=== PATIENT | male | born 1970 | race Caucasian/White ===

== ENCOUNTER 2024-06-17 09:21 | Outpatient (CLI) | payer OTHER, SELFPAY ==
--- NOTE | ~2024-06-17 | MMUS_ITS ---
EXAMINATION: MM diagnostic tamia LT w juancarlos, US breast BI complete HISTORY: Left breast lump TECHNIQUE: Additional 3-D tomosynthesis images of the breasts were performed and synthetic 2-D images were generated. CAD analysis was submitted and interpreted. High resolution bilateral complete breas t ultrasound was performed. COMPARISON: None BREAST PARENCHYMAL COMPOSITION: Not dense: There are scattered areas of fibroglandular density. FINDINGS: MAMMOGRAPHIC FINDINGS: There is a subareolar mass of the left breast measuring approximately 2.8 cm by mammography. This cor responds to the palpable finding. There are no discrete masses, calcifications or suspicious architec tural distortion in the right breast. There is bilateral gynecomastia. ULTRASOUND: Complete US of all 4 quadrants of the breast/s and retroareolar region was reviewed. Right breast: Normal heterogeneous echotexture without focal solid or cystic mass. Left breast: In the upper outer quadrant of the left breast there is a hypoechoic mass with slightly irregular margins, parallel orientation and mixed posterior attenuation. This measures measures 3 x 1 .2 x 2.9 cm corresponding to the mammographic finding. IMPRESSION: 1. Complex hypoechoic 3 cm left breast mass corresponding to the palpable and mammographic finding. 2. Ultrasound-guided left breast biopsy recommended. BI-RADS category 4, suspicious findings. Reviewed, dictated and finalized at location B. IGURATOR IMPRESSION: 1. Complex hypoechoic 3 cm left breast mass corresponding to the palpable and m ammographic finding. 2. Ultrasound-guided left breast biopsy recommended. BI-RADS category 4, suspicious findings.
--- OUTSIDE RECORDS SUMMARY | 2024-06-17 09:30 | XMS_ITS | Referral Summary ---
Author Organization [facility] Address [facility] [place] [address] Care Team Providers Care Sander Machine Name Role Phone Yonatan Andrade MD Primary Care Provider [phone] Huy Mcpherson MD Unavailable [phone] Boy Bernard MD Unavailable [phone] Christo Enrique MD Unavailable [phone] Allergies No known active allergies Medications buPROPion XL (WELLBUTRIN XL) 150 mg 24 hr tabletIndications: Anxiety with Depression Take 150 mg by mouth every morning 11/21/19 20 Active quinapriL (ACCUPRIL) 10 mg tabletIndications: hypertension Take 10 mg by mouth every morning 09/26/19 20 Active rosuvastatin (CRESTOR) 10 mg tabletIndications: hyperlipidemia 10 mg every morning 09/23/19 20 Active sildenafiL (VIAGRA) 100 mg tablet TAKE ONE TABLET DAILY NEEDED 09/24/19 20 Active ondansetron ODT (ZOFRAN-ODT) 4 mg disintegrating tablet Take 1 tablet (4 mg total) by mouth every 8 (eight) hours as needed for nausea or vomiting 20 tablet 11/25/19 21 Active Additional Information Patient not taking.Reported on 12/28/2021 docusate sodium (COLACE) 100 mg capsuleIndications :constipation Take 1 capsule (100 mg total) by mouth 2 (two) times a day 30 capsule 11/25/19 21 Active Additional Information Patient not taking.Reported on 12/28/2021 oxyCODONE (ROXICODONE) 5 mg immediate release tabletIndications: Pain Take 1 tablet (5 mg total) by mouth every 4 (four) hours as needed for pain 10 tablet 11/27/19 21 Active Additional Information Patient not taking.Reported on 12/28/2021 acetaminophen (TYLENOL) 500 mg tablet TAKE 2 TABLETS BY MOUTH EVERY 8 HOURS 11/25/19 21 Active polyethylene glycol (GoLYTELY) 236-22.74-6.74 -5.86 gram solutionIndication s:Adenomatous polyp of ascending colon Drink first half of prep at 6 pm the night before procedure and then second half 4 hours prior to leaving home. 4000 mL 11/29/19 22 Active Additional Information Patient not taking.Reported on 12/28/2021 Vraylar 3 mg capsule capsule Take 3 mg by mouth every morning 12/28/19 22 Active lamoTRIgine (LaMICtal) 150 mg tabletIndications: Spells of decreased attentiveness,Bipo lar affective disorder in remission (CMS/HCC) (HCC) Take 2 tablets (300 mg total) by mouth nightly 180 tablet 1 09/21/19 23 Active OXcarbazepine (TRILEPTAL) 300 mg tabletIndications: Spells of decreased attentiveness,Bipo lar affective disorder in remission (CMS/HCC) (HCC) Take 1 tablet (300 mg total) by mouth 2 (two) times a day 180 tablet 1 02/08/20 23 Active Active Problems Problem Noted Date Diagnosed Date History of colon polyps 12/23/2020 Adenomatous polyp of ascending colon 10/19/2020 Spells of decreased attentiveness 06/01/2020 Assessment & Plan (01/02/2022 11:56 AM CDT): 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 2-3 times a week 12/22/2021 Q2: How many drinks containi ng alcohol do you have on a typical day when you are drinking? 3 or 4 12/22/2021 Q3: How often do you have si x or more drinks on one occasion? 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 Gender Identity Not on file Sexual Orientation Not on file Last Filed Vital Signs Vital Sign Reading Time Taken Comments Blood Pressure 114/76 12/28/2021 1:37 PM CDT Pulse 78 12/28/2021 1:37 PM CDT Temperature 36.7 C (98 F) 12/28/2021 1:37 PM CDT Respiratory Rate 16 12/22/2021 10:30 AM CDT Oxygen Saturation 98% 12/28/2021 1:37 PM CDT Inhaled Oxygen Concentration - - Weight 103.1 kg (227 lb 5 oz) 12/28/2021 1:37 PM CDT Height 188 cm (6' 2 ) 12/28/2021 1:37 PM CDT Body Mass Index 29.19 12/28/2021 1:37 PM CDT Plan of Treatment Not on file Procedures Procedure Name Priority Date/Time Associated Diagnosis Comments COLONOSCOPY 12/22/2021 9:25 AM CDT from Last 3 Months or Most Recently Relevant to Health Maintenance Results * COLONOSCOPY (12/22/2021 9:25 AM CDT) Anatomical Region Laterality Modality Other Narrative Procedure Note Christo Enrique MD - 12/22/2021 9:25 AM CDT [facility] Patient Name: Niraj Patton Procedure Date: 12/22/2021 9:25 AM Date of : 1970 Admit Type: Outpatient Age: 51 Gender: Male Attending MD: Christo Enrique M.D. Room: [facility] ENDOSCOPY ROOM 02 Note Status: Finalized Procedure: Colonoscopy Indications: High risk colon cancer surveillance: Personalhistory of colonic polyps, Last colonoscopy: 2020 Referring MD: Yonatan Andrade MD Providers: Christo Enrique M.D. Medicines: Propofol per Anesthesia Complications: No immediate complications. Estimated Blood Loss: Estimated blood loss: none. Procedure: Pre-Anesthesia Assessment: - After reviewing the risks and benefits, thepatient was deemed in satisfactory condition to undergo the procedure in an ambulatory setting. - Immediately prior to administration ofmedications, the patient was re-assessed for adequacy to receive sedatives. The benefits, risks and alternatives of theprocedure and sedation were discussed and informed consentwas obtained. All questions were answered. Please referto the signed informed consent document in the medical record. The scope was passed under direct vision.The [id number] Endoscsope was introduced through the anus and advanced to the the ileocolonic anastomosis. The colonoscopy was performed without difficulty. The patient tolerated the procedurewell. The quality of the bowel preparation was good. The bowel preparation used was GoLYTELY via split dose instruction. Findings: The entire examined colon appeared normal. Impression: - The entire examined colon is normal. - No specimens collected. - The entire examined colon is normal. Recommendation: - Repeat colonoscopy in 3 years for surveillance. Electronically signed by Dr.Matthew Klaus M.D. Christo Enrique M.D. 12/22/2021 10:15:48 AM . Number of Addenda: 0 Note Initiated On: 12/22/2021 9:25 AM Recognized by the [employer] for promoting quality in endoscopy Christo Enrique MD ENDOSCOPY PROCEDURES Final R esult from Last 3 Months or Most Recently Relevant to Health Maintenance Insurance [employer] Advance Directives For more information, please contact: [phone] * Full Code (Latest Code Status on File) Date Activated Date Inactivated Comments 12/22/2021 8:51 AM 12/22/2021 2:41 PM * Full Code Date Activated Date Inactivated Comments 11/22/2020 2:57 PM 11/24/2020 2:17 PM Care Teams Sander Machine Relationship Specialty Start Date End Date Yonatan Andrade MD [address] [place] [address] PCP - General Internal Medicine 06/03/19 Huy Mcpherson MD [address] [place] [address] Referring Physician Gastroenterology 10/13/20 Boy Bernard MD [address] [place] [address] Field Service Specialist Gastroenterology 10/19/20 Christo Enrique MD [phone] [place] [address] Surgeon Colon and Rectal Surgery 10/19/20
--- OUTSIDE RECORDS SUMMARY | 2024-06-17 09:30 | XMS_ITS | Encounter Summary ---
Author Organization [facility] Address [facility] [place] [address] Care Team Providers Care Farmer Cash Grain Name Role Phone Yonatan Andrade MD Primary Care Provider [phone] Guillaume Portillo MD Unavailable [phone] Encounter Details Date Type Department Care Team (Late st Contact Info) Description 09/24/2020 Prep for Procedure [address] [id number] Boy Bernard MD [address] [address] Social History Tobacco Use Types Packs/Day Years Used Date Smoking Tobacco: Never Smokeless Tobacco: Never Alcohol Use Standard Drinks/Week Comments Yes 10 (1 standard drink = 0.6 oz pu re alcohol) AUDIT-C Answer Date Recorded Frequency of Alcohol Consumption 2-3 times a wee k 06/05/2019 Average Number of Drinks 7 to 9 020 Frequency of Binge Drinking Weekly 09/2019 Sex and Gender Information Value Date Recorded Sex Assigned at Not on file Legal Sex Male 7:01 PM CDT Gender Identity Not on file Sexual Orientation Not on file 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 No / Unsure 09/24/2020 3:05 PM CDT documented as of this encounter Plan of Treatment Not on file documented as of this encounter Results * PRE-SURGICAL/PRE-PROCEDURE CORONAVIRUS (COVID 19) (09/28/2020 8:24 AM CDT) SPECIMEN SOURCE NASOPHARYNGEAL SWAB 09/28/2020 8:[address] [facility] CORONAVIRUS SARS COV 2 PCR (RESP) NEGATIVE NEGATIVE 09/29/2020 1:12 PM CDT [facility] Comment: THE SARS-CoV-2 TEST HAS BEEN AUTHORIZED BY THE FDA UNDER AN EUA FOR USE BY AUTHORIZED LABORATORIES. PERFORMED BY NUCLEIC ACID AMPLIFICATION PCR FIRST TEST YES 09/28/2020 8:[address] [facility] EMPLOYED IN HEALTHCARE NO 09/28/2020 8:[address] [facility] SYMPTOMATIC DEFINED BY CDC NO 09/28/2020 8:[address] [facility] HOSPITALIZATION STATUS NO 09/28/2020 8:[address] [facility] PATIENT IN ICU NO 09/28/2020 8:[address] [facility] RESIDENT OF [facility] NO 09/28/2020 8:[address] [facility] NASOPHARYNGEAL SWAB / Unknown 09/28/2020 8:[address] [facility] Devan Bernard MD MICROBIOLOGY - GENERAL ORDERABLES Final Result [facility] [address] [place] [address], [place] [phone] [facility] [address] [place] [address], [place] [phone] documented in this encounter Visit Diagnoses Diagnosis Pre-op testing- Primary Preoperative examination, unspecified documented in this encounter Additional Health Concerns Infection Onset Date Last Indicated Resolved Time COVID-19 Rule Out 09/28/2020 09/28/2020 09/29/2020 1:12 PM CDT documented as of this encounter Care Teams Farmer Cash Grain Relationship Specialty Start Date End Date Yonatan Andrade MD [facility] [place] [address] PCP - General INTERNAL MEDICINE 05/23/19 Guillaume Portillo MD [facility]. [address] [address] Fisher Toolroom Helper CARDIOVASCULAR DISEASE 06/05/19 documented as of this encounter
--- OUTSIDE RECORDS SUMMARY | 2024-06-17 09:30 | XMS_ITS | Patient Health Summary ---
Author Organization [facility] Address [address] [place] [address] Care Team Providers Care Payroll Services Analyst Name Role Phone Unavailable Primary Care Provider Unavailtatum e Note from [facility],non-owned Affiliates and Associated Physician Practices is amultiple site organization consisting of ambulatory clinics and hospital sitesin [place], [place], [place] and [place]. This disclosure is being madepursuant to the Care Everywhere program and may not contain all information available regarding this patient. Last updated 18.[facility] Social History Tobacco Use Types Packs/Day Years Used Date Smoking Tobacco: Never Assessed Sex and Gender Information Value Date Recorded Sex Assigned at Not on file Gender Identity Not on file Sexual Orientation Not on file Procedures * DERMATOPATHOLOGY(Performed 05/26/2021) Results * DERMATOPATHOLOGY (05/26/2021 12:00 AM [facility]) Case Report Dermatopathology Report Case: [id number] Authorizing Provider: Osmany Camargo MD Collected: 05/26/2021 12:00 AM Ordering Location: [facility] Lab Received: 05/27/2021 03:09 PM Pathologist: Ellie Solano MD Specimen: Skin, right cheek 2 10:37 AM [facility] DERMATOPATHOLOGY LABORATORY Final Diagnosis Specimen A. 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 Path#[id number] 2 10:37 AM [facility] DERMATOPATHOLOGY [facility]ORAT[facility] Gross Description Specimen A: Received is one formalin filled container labeled with the patient's name and designated right cheek. The specimen consists of a shave biopsy measuring 7x6x1 mm. Jar 0. 2 10:37 AM [facility] DERMATOPATHOLOGY LABORATORY Microscopic Description Specimen A. SKIN, right cheek: In the dermis there is a well-circumscribed collection of small as well as larger, thin- and thick-walled vessels. 2 10:37 AM [facility] DERMATOPATHOLOGY LABORATORY Disclaimer An external and internal positive and negative controls are appropriate for the histochemical, immunohistochemical and immunofluorescence stain(s) in this case (if any), except where stated explicitly. The performance characteristics of the stain(s) cited in this report were developed and its performance characteristic determined by the Dermatopathology Laboratory at [facility], directed by Dr. Negar Elliott. These tests need not be, and therefore are not, approved by the [place] Food and Drug Administration. The tests are used for clinical purposes. Billing Codes Specimen Charges Stain Charges 38376 1 2 10:37 AM [facility] DERMATOPATHOLOGY [facility]OR[facility]ORY Embedded Images 2 10:37 AM [facility] DERMATOPATH[facility]ORY Pathology/Cytolog y TISSUE SPECIMEN FROM SKIN / Unknown 05/26/2021 05/27/2021 3:09 PM [facility] Osmany Camargo MD LAB - PATHOLOGY/CYTO LOGY ORDERABLES DERMATOPATHOLOGY LABORATORY [facility] - Department of Dermatology [address], [address] [phone]
--- OUTSIDE RECORDS SUMMARY | 2024-06-17 09:30 | XMS_ITS | Clinical Summary ---
Author Organization [facility] [employer] Address [address] [facility] [place] [address] Care Team Providers Care Lead Bi Developer Name Role Phone Unavailable Primary Care Provider Unavailabl e Source Comments [facility] [employer],non-owned Affiliates and Associated Physician Practices is amultiple site organization consisting of ambulatory clinics and hospital sitesin [place], [place], [place] and [place]. This disclosure is being madepursuant to the Care Everywhere program and may not contain all information available regarding this patient. Last updated 18.[facility] [employer] Social History Tobacco Use Types Packs/Day Years Used Date Smoking Tobacco: Never Assessed Sex and Gender Information Value Date Recorded Sex Assigned at Not on file Gender Identity Not on file Sexual Orientation Not on file Plan of Treatment Health Maintenance Due Date Last Done Comments COLOGUARD (AGES 45-75) - COL ON CA SCREENING 1970 COLON MONITORING 1972 COLONOSCOPY - COLON CA SCREENING 1972 CT COLONOGRAPHY - COLON CA SCREENING 1972 Colorectal Cancer Screening 1972 FIT - COLON CA SCREENING 1972 FLEX SIG - COLON CA SCREENING 1972 LIPID TESTING 1972 HIV SCREENING 1987 HEPATITIS C SCREENING 06/05/1990 DTAP/TDAP/TD VACCINES (1 - Tdap) 1991 HEPATITIS B VACCINE (1 of 3 - 19+ 3-dose series) 1991 PNEUMOCOCCAL VACCINE 50+ (1 of 1 - PCV) 2022 ZOSTER VACCINE (1 of 2) 2022 COVID-19 VACCINE ( - 2023-2 5 season) 2023 INFLUENZA VACCINE (#1) 2023 DEPRESSION SCREENING 04/30/2024 HIB VACCINE Aged Out No longer eligi ble based on patient's age to complete this topic HPV VACCINE Aged Out No longer eligi ble based on patient's age to complete this topic MENINGOCOCCAL (Group B) VACCINE Aged Out No longer eligible based on patient's age to complete this topic MENINGOCOCCAL VACCINE Aged Out No praneeth issa eligible based on patient's age to complete this topic PNEUMOCOCCAL VACCINE Aged Out No long er eligible based on patient's age to complete this topic
--- OUTSIDE RECORDS SUMMARY | 2024-06-17 09:30 | XMS_ITS | Clinical Summary ---
Author Organization [facility] Address [facility]ending [facility] to [facility] [place] [address] Care Team Providers Care Dental Technician Name Role Phone Yonatan Andrade MD Primary Care Provider [phone] Huy Mcpherson MD Unavailable [phone] Boy Bernard MD Unavailable [phone] hCristo Enrique MD Unavailable [phone] Allergies No known active allergies Medications buPROPion [...] Date Resolved Date Spells of speech arrest 06/01/20200 05/2020 Surgical History Surgery Date Site/Laterality Comments RESECTION capillary hemangioma VASECTOMY 04/30/2017 - 04/29/2018 BREAST LUMPECTOMY first on R then had L done for aesthetic reasons LAPAROSCOPIC RIGHT COLON RESECTION 11/22/2020 Laparoscopic-assisted right colectomy Medical History Medical History Date Comments Hypertension Seizures (HCC) last seizure 05/01 020 Depression Anxiety Family History Medical History Relation Name Comments Colon cancer Father Colon polyps Father Seizures Father Colon polyps Mother Colon polyps Sister Anesthesia problems Neg Hx Relation Name Status Comments Father Mother Sister Social History Tobacco Use Types Packs/Day Years [...] on file 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 Gender Identity Not on file Sexual Orientation Not on file Obstetrics History Last Filed Vital Signs Vital Sign Reading [...] 12/28/2021 1:37 PM CDT Plan of Treatment Health Maintenance Due Date Last Done Comments Depression Screening 1970 Hepatitis C Screening 1970 Prostate Cancer Screening-PSA 1972 DTaP/Tdap/Td Vaccine (1 - Tdap) 1983 Hepatitis B Screening 1990 Regular Well Visit/Exam 18-64 1990 Zoster Vaccine (1 of 2) 2022 Influenza Vaccine (#1) 2023 Colon Cancer Screening-Colonoscopy 12/23/20312021 Pneumococcal vaccine <65 Aged Out No longer eligible based on patient's age to complete this topic Procedures Procedure Name Priority Date/Time Associated Diagnosis Comments COLONOSCOPY 12/22/2021 9:25 AM CDT from Last 3 Months or Most Recently Relevant to Health Maintenance Results * COLONOSCOPY (12/22/2021 9:25 AM CDT) Anatomical Region Laterality Modality Other Narrative Procedure Note Christo Enrique MD - 12/22/2021 9:25 AM CDT [facility] Patient Name: Niraj Patton Procedure Date: 12/22/2021 9:25 AM Date of : 1970 Admit Type: Outpatient Age: 51 Gender: Male Attending MD: Christo Enrique M.D. Room: [facility] ENDOSCOPY ROOM 02 Note Status: Finalized [...] The scope was passed under direct vision.The [id number] Endoscsope was introduced through the anus and [...] On: 12/22/2021 9:25 AM Recognized by the [place] [employer] for promoting quality in endoscopy Christo Enrique MD ENDOSCOPY PROCEDURES Final R esult from Last 3 Months or Most Recently Relevant to Health Maintenance Insurance [facility] OOS mobintent ACCESS OOS mob[employer] ACCESS OOS Advance Directives For more information, please contact: [phone] * Full Code (Latest Code Status on File) Date Activated Date Inactivated Comments 12/22/2021 8:51 AM 12/22/2021 2:41 PM * Full Code Date Activated Date Inactivated Comments 11/22/2020 2:57 PM 11/24/2020 2:17 PM Care Teams Dental Technician Relationship Specialty Start Date End Date Yonatan Andrade MD [address] [place] [address] PCP - General Internal Medicine 06/03/19 Huy Mcpherson MD [address] [facility] [address] [place] [address] Referring Physician Gastroenterology 10/13/20 Boy Bernard MD [address] [facility] [address] [place] [address] Engineering Psychologist Gastroenterology 10/19/20 Christo Enrique MD [address] [facility] [phone] [place] [address] Surgeon Colon and Rectal Surgery 10/19/20
--- OUTSIDE RECORDS SUMMARY | 2024-06-17 09:30 | XMS_ITS | Clinical Summary ---
Author Organization [facility] Address [facility] [place] [address] Care Team Providers Care Collar Band Creaser Name Role Phone Yonatan Andrade MD Primary Care Provider [phone] Guillaume Portillo MD Unavailable [phone] Allergies No known active allergies Medications buPROPion XL 300 MG 24 hr tablet TK 1 T PO QAM 11/09/2017 Activ e rosuvastatin 10 MG tablet Take 10 mg by mouth every morning. 03/14/2019 Active sildenafil 100 MG tablet TAKE ONE TABLET DAILY NEEDED DIRECTED 01/25/2019 Active quinapril 10 MG tablet Take 10 mg by mouth every morning. 04/28/2019 Active lamotrigine 100 MG tablet Take 100 mg by mouth every evening. 05/28/2019 Active OXcarbazepine 600 MG Tab tablet Take 300 mg by mouth 2 (two) times daily. 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 on file Not on file Last Filed Vital Signs Vital Sign Reading Time Taken Comments Blood Pressure 142/82 10/01/2020 1:54 PM CDT Pulse 73 10/01/2020 1:54 PM CDT Temperature 36.5 C (97.7 F) 10/01/2020 9:54 AM CDT Respiratory Rate 16 10/01/2020 1:54 PM CDT Oxygen Saturation 100% 10/01/2020 1:54 PM CDT Inhaled Oxygen Concentration - - Weight 102.1 kg (225 lb) 09/24/2020 3:05 PM CDT Height 190.5 cm (6' 3 ) 09/24/2020 3:05 PM CDT Body Mass Index 28.12 09/24/2020 3:05 PM CDT Plan of Treatment Health Maintenance Due Date Last Done Comments Annual Physical 1975 Hepatitis C 1990 DTaP, Tdap and Td Vaccines ( 1 - Tdap) 1991 Hepatitis B Vaccines (1 of 3 - 19+ 3-dose series) 1991 Zoster Vaccines (1 of 2) 2022 COVID-19 Vaccine ( - 2023-2 5 season) 2023 Influenza Adult (#1) 2024 Colorectal Cancer Screening Colonoscopy (10 Years) 10/01/2030 10/01/2020, 10/01/2020 Meningococcal B Vaccine Aged Out No l onger eligible based on patient's age to complete this topic Meningococcal Vaccine Aged Out No praneeth issa eligible based on patient's age to complete this topic Pneumococcal Vaccine: Pediatrics (0 to 5 Years) and At-Risk Patients (6 to 64 Years) Aged Out No longer eligible b ased on patient's age to complete this topic RSV Immunizations Under 20 Months Aged Out No longer eligible b ased on patient's age to complete this topic Procedures Procedure Name Priority Date/Time Associated Diagnosis Comments COLONOSCOPY Routine 10/01/2020 9:29 AM CDT from Last 3 Months or Most Recently Relevant to Health Maintenance [place] [address] [address] [address] CROSS BLUE SHIELD BLUE [employer] Care Teams Collar Band Creaser Relationship Specialty Start Date End Date Yonatan Andrade MD [address] [place] [address] PCP - General INTERNAL MEDICINE 05/23/19 Guillaume Portillo MD [facility]. [address] [address] Boyce Billposting Supervisor CARDIOVASCULAR DISEASE 06/05/19
--- OUTSIDE RECORDS SUMMARY | 2024-06-17 09:30 | XMS_ITS | Clinical Summary ---
Author Organization [facility] Address [address] [address] Phone Care Team Providers Care Customer Service Security Officer Name Role Phone Yonatan Andrade MD Primary Care Provider [phone] Allergies No known active allergies Medications QUEtiapine Fumarate 300 MG TABLET SR 24 HR TK 1 T PO QD 2 10/29/2017 Active quinapril (ACCUPRIL) 10 MG Tablet TK 1 T PO QD 0 11/09/2017 Active buPROPion (WELLBUTRIN) 300 MG TABLET SR 24 HR XL tablet TK 1 T PO QAM 3 11/09/2017 Active Active Problems Problem Noted Date Diagnosed Date Encounter for vasectomy 12/28/2017 Social History Tobacco Use Types Packs/Day Years Used Date Smoking Tobacco: Never Smokeless Tobacco: Never Alcohol Use Standard Drinks/Week Comments Yes 12 (1 standard drink = 0.6 oz pu re alcohol) Sex and Gender Information Value Date Recorded Sex Assigned at Not on file Legal Sex Male 9:42 AM CDT Gender Identity Not on file Sexual Orientation Not on file Last Filed Vital Signs Vital Sign Reading Time Taken Comments Blood Pressure 135/75 12/28/2017 8:55 AM CDT Pulse 89 12/28/2017 8:55 AM CDT Temperature 36.3 C (97.4 F) 12/28/2017 8:55 AM CDT Respiratory Rate 16 12/28/2017 8:55 AM CDT Oxygen Saturation 98% 12/28/2017 8:55 AM CDT Inhaled Oxygen Concentration - - Weight 102.1 kg (225 lb) 12/25/2017 2:00 PM CDT Height 190.5 cm (6' 3 ) 12/25/2017 2:00 PM CDT Body Mass Index 28.12 12/25/2017 2:00 PM CDT Plan of Treatment Health Maintenance Due Date Last Done Comments Hepatitis C Virus (HCV) Screening 1972 TdaP Immunization 1972 Hepatitis B Immunization (1 of 3 - 19+ 3-dose series) 1991 Colonoscopy 2017 Colorectal Cancer Screening 2017 Cologuard 2022 Immunochemical Fecal Occult Blood 2022 Pneumococcal Immunization (5 0+ years) (1 of 1 - PCV) 2022 Zoster Immunization (1 of 2) 2022 Influenza Immunization (#1) 2023 02/16/2016 SARS-COV-2 Immunization (1 - season) 2023 Respiratory Syncytial Virus (RSV) Immunization (Adult) (1 - 1-dose 75+ series) 2047 Meningococcal Immunization (ACWY) Aged Out No longer eligible based on patient's age to complete this topic Pneumococcal Immunization Combined Aged Out No longer eligible based on patient's age to complete this topic Rotavirus Immunization Aged Out No lo nger eligible based on patient's age to complete this topic Insurance Care Teams Customer Service Security Officer Relationship Specialty Start Date End Date Yonatan Andrade MD [address] [place] [address] PCP - General Internal Medicine 11/23/17
--- OUTSIDE RECORDS SUMMARY | 2024-06-17 09:30 | XMS_ITS | Encounter Summary ---
Author Organization [facility] Address [address] [place] [address] Care Team Providers Care Watch Dial Printer Name Role Phone Unavailable Primary Care Provider Unavailabl e Encounter Details Date Type Department Care Team (Late st Contact Info) Description 05/27/2021 Lab Requisition [facility] DermPath Lab [address] [facility], [place] [id number] Osmany Camargo MD [address] [place] [address] Social History Tobacco Use Types Packs/Day Years Used Date Smoking Tobacco: Never Assessed Sex and Gender Information Value Date Recorded Sex Assigned at Not on file Gender Identity Not on file Sexual Orientation Not on file documented as of this encounter Plan of Treatment Not on file documented as of this encounter Procedures Procedure Name Priority Date/Time Associated Diagnosis Comments DERMATOPATHOLOGY Routine 05/26/2021 12:0 0 AM PLASTIC BLOCK BOILER RELINER documented in this encounter Results * DERMATOPATHOLOGY (05/26/2021 12:00 AM P[employer] BOILER RELINER) Case Report Dermatopathology Report Case: [id number] Authorizing Provider: Osmany Camargo MD Collected: 05/26/2021 12:00 AM Ordering Location: [facility] DermPath Lab Received: 05/27/2021 03:09 PM Pathologist: Ellie Solano MD Specimen: Skin, right cheek 2 10:37 AM [employer]IL[facility]INER DERMATOPATHOLOGY LABORATORY Final Diagnosis Specimen A. 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 Path#[id number] 2 10:37 AM PLASTIC BLOCK BOILER RELINER DERMATOPATHOLOGY LABORATORY Gross Description Specimen A: Received is one formalin filled container labeled with the patient's name and designated right cheek. The specimen consists of a shave biopsy measuring 7x6x1 mm. Jar 0. 10:37 AM [facility] DERMATOPATHOLOGY LABORATORY Microscopic Description Specimen A. SKIN, right cheek: In the dermis there is a well-circumscribed collection of small as well as larger, thin- and thick-walled vessels. 2 10:37 AM [facility] DERMATOPATHOLOGY LABORATORY Disclaimer An external and internal positive and negative controls are appropriate for the histochemical, immunohistochemical and immunofluorescence stain(s) in this case (if any), except where stated explicitly. The performance characteristics of the stain(s) cited in this report were developed and its performance characteristic determined by the Dermatopathology Laboratory at [facility], directed by Dr. Negar Elliott. These tests need not be, and therefore are not, approved by the [place] Food and Drug Administration. The tests are used for clinical purposes. Billing Codes Specimen Charges Stain Charges 92929 1 2 10:37 AM [facility] DERMATOPATHOLOGY LABORATORY Embedded Images 2 10:37 AM [facility] DERMATOPATHOLOGY LABORATORY Pathology/Cytolog y TISSUE SPECIMEN FROM SKIN / Unknown 05/26/2021 05/27/2021 3:09 PM [facility] Osmany Camargo MD LAB - PATHOLOGY/CYTO LOGY ORDERABLES DERMATOPATHOLOGY LABORATORY [facility] - Department of Dermatology [address], [address] [phone] documented in this encounter Visit Diagnoses Not on filedocumented in this encounter
--- OUTSIDE RECORDS SUMMARY | 2024-06-17 09:30 | XMS_ITS | Referral Summary ---
Author Organization [facility] Address [address] [facility] [address] Care Team Providers Care Lab Courier Name Role Phone Unavailable Primary Care Provider Unavailabl e Source Comments [facility],non-owned Affiliates and Associated Physician Practices is amultiple site organization consisting of ambulatory clinics and hospital sitesin [place], [place], [place] and [place]. This disclosure is being madepursuant to the Care Everywhere program and may not contain all information available regarding this patient. Last updated 18.[facility] Social History Tobacco Use Types Packs/Day Years Used Date Smoking Tobacco: Never Assessed Sex and Gender Information Value Date Recorded Sex Assigned at Not on file Gender Identity Not on file Sexual Orientation Not on file Plan of Treatment Not on file
--- OUTSIDE RECORDS SUMMARY | 2024-06-17 09:31 | XMS_ITS | Encounter Summary ---
Author Organization [facility] Address [facility] [place] [address] Care Team Providers Care Emergency Detail Driver Name Role Phone Yonatan Andrade MD Primary Care Provider [phone] Guillaume Portillo MD Unavailable [phone] Encounter Details Date Type Department Care Team (Late st Contact Info) Description 06/24/2019 Abstract [facility] at [facility], [address] [address] Shanice Glass MA Social History Tobacco Use Types Packs/Day Years Used Date Smoking Tobacco: Never Smokeless Tobacco: Never Alcohol Use Standard Drinks/Week Comments Yes 0 (1 standard drink = 0.6 oz pur e alcohol) AUDIT-C Answer Date Recorded Frequency of [...] 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 Not on file Not on file documented as of this encounter Plan of Treatment Not on file documented as of this encounter Procedures Procedure Name Priority Date/Time Associated Diagnosis Comments CBC (OUTSIDE LAB) Routine 05/23/2019 VITAMIN B-12 Routine 05/23/2019 PROSTATE SPECIFIC ANTIGEN,TOTAL Routine 05/23/2019 COMPREHENSIVE METABOLIC PANEL Routine 05/23/2019 LIPID PANEL Routine 05/23/2019 THYROID STIM HORMONE TSH Routine 05/23/2019 MAGNESIUM Routine 05/23/2019 CK (CPK) Routine 05/23/2019 documented in this encounter Results * PROSTATE SPECIFIC ANTIGEN,TOTAL (05/23/2019) PSA 3.4 05/23/2019 us Doc [facility] Final Result * VITAMIN B-12 (05/23/2019) Pathologist [facility] VITAMIN B12 S/P/B 530 200 - 1,100 05/23/2019 us Doc [facility] Final Result * CBC (OUTSIDE LAB) (05/23/2019) Pathologist [facility] WBC 7.5 HGB 15.8 HCT 45.8 PLT 257 05/23/2019 us Doc [facility] LAB-OUTSIDE/ABSTRACTED Final Result * THYROID STIM HORMONE, TSH (05/23/2019) Pathologist [facility] TSH 1.15 0.40 - 4.50 05/23/2019 us Doc [facility] Final Result * CK (CPK) (05/23/2019) Pathologist [facility] CPK 96 05/23/2019 us Doc [facility] Final Result * MAGNESIUM (05/23/2019) Pathologist [facility] MAGNESIUM 2.1 1.5 - 2.5 05/23/2019 us Doc [facility] Final Result * COMPREHENSIVE METABOLIC PANEL (05/23/2019) SODIUM S/P/B 141 POTASSIUM S/P/B 4.5 CO2 21 CHLORIDE S/P/B 106 GLUCOSE 93 mg/dL CALCIUM S/P/B 9.9 BUN 14 CREATININE S/P/B 1.25 0.7 - 1.3 EGFR AFR. AMER. 80 EGFR NON-AFR. AMER. 69 <=90 ALKALINE PHOSPHATASE S/P/B 72 ALT 39 AST 21 BILIRUBIN TOTAL S/P/B 0.6 ALBUMIN S/P/B 4.9 3.5 - 5.0 TOTAL PROTEIN S/P/B 8.0 GLOBULIN 3.1 05/23/2019 us Doc [facility] Final Result * LIPID PANEL (05/23/2019) CHOLESTEROL 198 HDL 41 TRIGLYCERIDES 262 NON HDL CHOLESTEROL 157 LDL (CALCULATED) 120 05/23/2019 us Doc [facility] Final Result documented in this encounter Visit Diagnoses Not on filedocumented in this encounter Additional Health Concerns Infection Onset Date Last Indicated Resolved Time COVID-19 Rule Out 09/28/2020 09/28/2020 09/29/2020 1:12 PM CDT documented as of this encounter Care Teams Emergency Detail Driver Relationship Specialty Start Date End Date Yonatan Andrade MD [facility] [place] [address] PCP - General INTERNAL MEDICINE 05/23/19 Guillaume Portillo MD [facility]. [address] [address] [place] Chrome Plater Helper CARDIOVASCULAR DISEASE 06/05/19 documented as of this encounter
== END 2024-06-17 09:22 | disposition home or self-care (01) ==
LOC: CHSIMG 09:22
PROVIDERS: PCP Physician Assistant Medical; Visit Provider Physician Assistant Medical
DX: N62 Hypertrophy of breast (principal); N63.0 Unspecified lump in unspecified breast; R92.8 Other abnormal and inconclusive findings on diagnostic imaging of breast
CPT/HCPCS: 76641; 77061; 77065; G0279

== ENCOUNTER 2024-07-03 08:06 | Outpatient (CLI) | payer OTHER, SELFPAY ==
--- NOTE | ~2024-07-03 | MMUS_ITS ---
EXAMINATION: 1. US breast biopsy LT w image 2. MM post biopsy diagnostic LT DATE: 07/03/2024 10:45 INDICATION: Left breast mass. TECHNIQUE: The procedure including the risks, benefits, and alternatives was discussed with the patie nt. Risks discussed included bleeding and infection. The patient understood the risks and agreed to p roceed. The skin of the left breast was prepped and draped in usual sterile fashion. Anesthetic was administered with 1% lidocaine at the skin and 1% lidocaine with epinephrine in the deeper tissue. A 10-gauge vacuum-assisted core biopsy needle was then used to obtain 4 core biopsy specimens under co ntinuous sonographic guidance. A Mammotome HydroMARK open coil marker was placed under sonographic gu idance The entry site was cleaned and dressed. There were no immediate complications. A two-view mammogram was obtained to document marker placement. FINDINGS: Ultrasound images demonstrate the needle in a 3.8 cm mass in the upper outer left breast. Breast composition: There are scattered areas of fibroglandular density. Mammogram: There are biopsy changes and a marker in a mass in the upper outer left breast. IMPRESSION: 1. Successful ultrasound-guided vacuum-assisted biopsy of a mass in the upper outer left breast with post procedure mammogram for marker placement. Reviewed, dictated and finalized at location A. DENT CARE ASSOCIATE IMPRESSION: 1. Successful ultrasound-guided vacuum-assisted biopsy of a mass in the upper o uter left breast with post procedure mammogram for marker placement.
--- OUTSIDE RECORDS SUMMARY | 2024-07-03 08:17 | XMS_ITS | Encounter Summary ---
Author Organization [facility] Address [address] [facility] [place] [address] Care Team Providers Care Cabinet Abrasive Sandblaster Name Role Phone Unavailable Primary Care Provider Unavailabl e Encounter Details Date Type Department Care Team (Late st Contact Info) Description 05/27/2021 Lab Requisition [facility] DermPath Lab [address] [facility] [place] [phone] Osmany Camargo MD [address] [place] [address] Social History Tobacco Use Types [...] Comments DERMATOPATHOLOGY Routine 05/26/2021 12:0 0 AM EAR[facility] CHILDHOOD documented in this encounter Results * DERMATOPATHOLOGY (05/26/2021 12:00 AM [facility]IL[facility]) Case Report Dermatopathology Report Case: [id number] Authorizing Provider: Osmany Camargo MD Collected: 05/26/2021 12:00 AM Ordering Location: [facility] Derm[facility] Lab Received: 05/27/2021 03:09 PM Pathologist: Ellie Solano MD Specimen: Skin, right cheek 2 10:37 AM [facility] DERMATOPATHOLOGY LABORATORY Final Diagnosis Specimen A. SKIN, right cheek: ARTERIOVENOUS HEMANGIOMA (D18.01) 2 10:37 AM [facility] DERMATOPATHOLOGY LABORATORY Clinical History Hemangioma vs PG vs other. Path#[id number] 2 10:37 AM [facility] DERMATOPATHOLOGY LABORATORY Gross Description Specimen A: Received is one formalin filled container labeled with the patient's name and designated right cheek. The specimen consists of a shave biopsy measuring 7x6x1 mm. Jar 0. 10:37 AM [facility] DERMATOPATHOLOGY LABORATORY Microscopic Description Specimen A. SKIN, right cheek: In the dermis there is a well-circumscribed collection of small as well as larger, thin- and thick-walled vessels. 2 10:37 AM [facility] DERMATOPATHOLOGY LABORATORY Disclaimer An external and internal positive and negative controls are appropriate for the histochemical, immunohistochemical and immunofluorescence stain(s) in this case (if any), except where stated explicitly. The performance characteristics of the stain(s) cited in this report were developed and its performance characteristic determined by the Dermatopathology Laboratory at [facility], directed by Dr. Negar Elliott. These tests need not be, and therefore are not, approved by the [place] Food and Drug Administration. The tests are used for clinical purposes. Billing Codes Specimen Charges Stain Charges 39483 1 2 10:37 AM [facility] DERMATOPATHOLOGY LABORATORY Embedded Images 2 10:37 AM [facility] DERMATOPATHOLOGY LABORATORY Pathology/Cytolog y TISSUE SPECIMEN FROM SKIN / Unknown 05/26/2021 05/27/2021 3:09 PM [facility] Osmany Camargo MD LAB - PATHOLOGY/CYTO LOGY ORDERABLES DERMATOPATHOLOGY LABORATORY [facility] - Department of Dermatology [address], [address] [phone] documented in this encounter Visit Diagnoses Not on filedocumented in this encounter
--- OUTSIDE RECORDS SUMMARY | 2024-07-03 08:17 | XMS_ITS | Clinical Summary ---
Author Organization [facility] Address [facility] [place] [address] Care Team Providers Care Sr. 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 Payroll Manager Relationship Specialty Start Date End Date Yonatan Andrade MD [address] [place] [id number] PCP - General INTERNAL MEDICINE 05/23/19 Guillaume Portillo MD [facility]. [address] [address] [place] [employer] Supervisor Pipe Lines CARDIOVASCULAR DISEASE 06/05/19
--- OUTSIDE RECORDS SUMMARY | 2024-07-03 08:17 | XMS_ITS | Clinical Summary ---
Author Organization [facility] Address [address] [facility] [place] [address] Care Team Providers Care Senior Category Manager Name Role Phone Unavailable Primary Care Provider Unavailabl e Source Comments [facility],non-owned Affiliates and Associated Physician Practices is amultiple site organization consisting of ambulatory clinics and hospital sitesin [place], [place], [place] and [place]. This disclosure is being madepursuant to the Care Everywhere program and may not contain all information available regarding this patient. Last updated 18.[facility] Social History Tobacco Use Types Packs/Day Years [...]
--- OUTSIDE RECORDS SUMMARY | 2024-07-03 08:18 | XMS_ITS | Encounter Summary ---
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 on file [...] Final Result * VITAMIN B-12 (05/23/2019) Pathologist [facility] VITAMIN B12 S/P/B 530 200 - 1,100 05/23/2019 us Doc [facility] Final Result * CBC (OUTSIDE LAB) (05/23/2019) Pathologist [facility] WBC 7.5 HGB 15.8 HCT 45.8 PLT 257 05/23/2019 us Doc [facility] Abstract LAB-OUTSIDE/ABSTRACTED Final Result * THYROID STIM HORMONE, TSH (05/23/2019) Pathologist [facility] TSH 1.15 0.40 - 4.50 05/23/2019 us Doc [facility] Final Result * CK (CPK) (05/23/2019) Pathologist [facility] CPK 96 05/23/2019 us Doc [facility] Final Result * MAGNESIUM (05/23/2019) Pathologist [facility] MAGNESIUM 2.1 1.5 - 2.5 05/23/2019 us [...] documented as of this encounter Care Teams Relationship Advisor Relationship Specialty Start Date End Date Yonatan Andrade MD [facility] [place] [address] PCP - General INTERNAL MEDICINE 05/23/19 Guillaume Portillo MD [facility]. [address] [address] [place] Natural Remedy Consultant CARDIOVASCULAR DISEASE 06/05/19 documented as of this encounter
--- OUTSIDE RECORDS SUMMARY | 2024-07-03 08:18 | XMS_ITS | Patient Health Summary ---
Author Organization [facility] Address [address] [facility] [place] [address] Care Team Providers Care Police Patrol Lieutenant Name Role Phone Unavailable Primary Care Provider Unavailabl e Note from [facility],non-owned Affiliates and Associated Physician Practices is amultiple site organization consisting of ambulatory clinics and hospital sitesin [place], [place], [place] and [place]. This disclosure is being madepursuant to the Care Everywhere program and may not contain all information available regarding this patient. Last updated 18.[facility] Social History Tobacco Use Types Packs/Day Years Used Date Smoking Tobacco: Never Assessed Sex and Gender Information Value Date Recorded Sex Assigned at Not on file Gender Identity Not on file Sexual Orientation Not on file Procedures * DERMATOPATHOLOGY(Performed 05/26/2021) Results * DERMATOPATHOLOGY (05/26/2021 12:00 AM [facility]) Case Report Dermatopathology Report Case: [id number] Authorizing Provider: Osmany Camargo MD Collected: 05/26/2021 12:00 AM Ordering Location: [facility] DermPath Lab Received: 05/27/2021 03:09 PM Pathologist: Ellie Solano MD Specimen: Skin, right cheek 2 10:37 AM [facility] DERMATOPATHOLOGY LABORATORY Final Diagnosis Specimen A. SKIN, right cheek: ARTERIOVENOUS HEMANGIOMA (D18.01) 2 10:37 AM [facility] DERMATOPATHOLOGY LABORATORY Clinical History Hemangioma vs PG vs other. Path#[id number] 2 10:37 AM [facility] DERMATOPATHOLOGY LABORATORY Gross Description Specimen A: Received is one formalin filled container labeled with the patient's name and designated right cheek. The specimen consists of a shave biopsy measuring 7x6x1 mm. Jar 0. 2 10:37 AM [facility] DERMATOPATHOLOGY LABORATORY Microscopic Description Specimen A. SKIN, right cheek: In the dermis there is a well-circumscribed collection of small as well as larger, thin- and thick-walled vessels. 2 10:37 AM [facility] DERMATOPATHOLOGY LABORATORY Disclaimer An external and internal positive and negative controls are appropriate for the histochemical, immunohistochemical and immunofluorescence stain(s) in this case (if any), except where stated explicitly. The performance characteristics of the stain(s) cited in this report were developed and its performance characteristic determined by the Dermatopathology Laboratory at [facility], directed by Dr. Negar Elliott. These tests need not be, and therefore are not, approved by the [place] Food and Drug Administration. The tests are used for clinical purposes. Billing Codes Specimen Charges Stain Charges 05875 1 2 10:37 AM [facility] DERMATOPATHOLOGY LABORATORY Embedded Images 2 10:37 AM [facility] DERMATOPATHOLOGY LABORATORY Pathology/Cytolog y TISSUE SPECIMEN FROM SKIN / Unknown 05/26/2021 05/27/2021 3:09 PM [facility] Osmany Camargo MD LAB - PATHOLOGY/CYTO LOGY ORDERABLES DERMATOPATHOLOGY LABORATORY [facility] - Department of Dermatology [address], [address] [phone]
--- OUTSIDE RECORDS SUMMARY | 2024-07-03 08:18 | XMS_ITS | Referral Summary ---
Author Organization [facility] Address [address] [facility] [place] [address] Care Team Providers Care Radioactive Waste Disposal Dispatcher Name Role Phone Unavailable Primary Care Provider Unavailabl e Source Comments [facility],non-owned Affiliates and Associated Physician Practices is amultiple site organization consisting of ambulatory clinics and hospital sitesin [place], [place], [place]. This disclosure is being madepursuant to the Care Everywhere program and may not contain all information available regarding this patient. Last updated 18.[facility] [employer] Social History Tobacco Use Types Packs/Day Years Used Date Smoking Tobacco: Never Assessed Sex and Gender Information Value Date Recorded Sex Assigned at Not on file Gender Identity Not on file Sexual Orientation Not on file Plan of Treatment Not on file
--- OUTSIDE RECORDS SUMMARY | 2024-07-03 08:18 | XMS_ITS | Clinical Summary ---
Author Organization [facility] Address [facility] [place] [address] Care Team Providers Care Diesel Tractor Engine Mechanic Name Role Phone Yonatan Andrade MD Primary Care Provider [phone] Huy Mcpherson MD Unavailable [phone] Boy Bernard MD Unavailable [phone] Christo Enrique MD Unavailable [phone] Allergies No known active allergies Medications buPROPion [...] decreased attentiveness,Bipo lar affective disorder in remission Take 2 tablets (300 mg total) by mouth nightly 180 tablet 1 09/21/19 23 Active OXcarbazepine (TRILEPTAL) 300 mg tabletIndications: Spells of decreased attentiveness,Bipo lar affective disorder in remission Take 1 tablet (300 mg total) by mouth 2 (two) times a day 180 tablet 1 02/08/20 23 Active Active Problems Problem Noted Date Diagnosed Date History of colon polyps 12/23/2020 Adenomatous polyp of ascending colon 10/19/2020 Spells of decreased attentiveness 06/01/2020 Assessment & Plan (01/02/2022 11:56 AM CDT): 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 Continue OXC 300/300 Continue LTG 300 Bipolar affective disorder in remission 06/01/19 21 Resolved Problems Problem Noted Date Diagnosed Date Resolved Date Spells of speech arrest 06/01/2020 020 05/2020 Surgical History Surgery Date Site/Laterality Comments RESECTION capillary hemangioma VASECTOMY 04/30/2017 - 04/29/2018 BREAST LUMPECTOMY first on R then had L done for aesthetic reasons LAPAROSCOPIC RIGHT COLON RESECTION 11/22/2020 Laparoscopic-assisted right colectomy Medical History Medical History Date Comments Hypertension Seizures (HCC) last seizure 05/01 Depression Anxiety Family History Medical History Relation [...] on file 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 Room: [facility]COPY [facility] 02 Note Status: Finalized Procedure: [...] The scope was passed under direct vision.The [id number] Endoscsope was introduced through the anus and [...] On: 12/22/2021 9:25 AM Recognized by the [place] Society for Gastrointestinal Endoscopy for promoting quality in endoscopy Christo Enrique MD ENDOSCOPY PROCEDURES Final R esult from Last 3 Months or Most Recently Relevant to Health Maintenance Insurance BLUE [facility] OOS [employer] ACCESS OOS [employer] ACCESS OOS Advance Directives For more information, please contact: [phone] * Full Code (Latest Code Status on File) Date Activated Date Inactivated Comments 12/22/2021 8:51 AM 12/22/2021 2:41 PM * Full Code Date Activated Date Inactivated Comments 11/22/2020 2:57 PM 11/24/2020 2:17 PM Care Teams Diesel Tractor Engine Mechanic Relationship Specialty Start Date End Date Yonatan Andrade MD [address] [place] [address] PCP - General Internal Medicine 06/03/19 Huy Mcpherson MD [address] [place] [address] Referring Physician Gastroenterology 10/13/20 Boy Bernard MD [address] [facility] [address] [place] [address] Animal Health Technician Gastroenterology 10/19/20 Christo Enrique MD [address] [facility] [phone] [place] [address] Surgeon Colon and Rectal Surgery 10/19/20
--- OUTSIDE RECORDS SUMMARY | 2024-07-03 08:18 | XMS_ITS | Encounter Summary ---
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 PERFORMED BY NUCLEIC ACID AMPLIFICATION PCR FIRST TEST YES 09/28/2020 8:21 AM CDT [facility] EMPLOYED IN HEALTHCARE NO 09/28/2020 8:21 AM CDT [facility] SYMPTOMATIC DEFINED BY CDC NO 09/28/2020 8:21 AM CDT [facility] HOSPITALIZATION STATUS NO 09/28/2020 8:21 AM CDT [facility] PATIENT IN ICU NO 09/28/2020 8:21 AM CDT [facility] NO 09/28/2020 8:21 AM CDT [facility] NASOPHARYNGEAL SWAB / Unknown 09/28/2020 8:24 AM CDT [facility] Devan Bernard MD MICROBIOLOGY - GENERAL ORDERABLES Final Result [facility] [address] [place] [address], [place] [phone] [facility] [address] [place] [address], [place] [phone] documented in this encounter Visit Diagnoses Diagnosis Pre-op testing- Primary Preoperative examination, unspecified documented in this encounter Additional Health Concerns Infection Onset Date Last Indicated Resolved Time COVID-19 Rule Out 09/28/2020 09/28/2020 09/29/2020 1:12 PM CDT documented as of this encounter Care Teams Concierge Receptionist Relationship Specialty Start Date End Date Yonatan Andrade MD [facility] [place] [address] PCP - General INTERNAL MEDICINE 05/23/19 Guillaume Portillo MD [facility]. [address] [address] [employer] Truck Operator CARDIOVASCULAR DISEASE 06/05/19 documented as of this encounter
--- OUTSIDE RECORDS SUMMARY | 2024-07-03 08:18 | XMS_ITS | Referral Summary ---
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 Room: [facility] ENDOSCOPY ROOM 02 Note Status: [...] The scope was passed under direct vision.The [id number] Endoscsope was introduced through the anus and [...] On: 12/22/2021 9:25 AM Recognized by the [place] Society for Gastrointestinal Endoscopy for promoting quality in endoscopy Christo Enrique MD ENDOSCOPY PROCEDURES Final R esult from Last 3 Months or Most Recently Relevant to Health Maintenance Insurance [employer] OOS [employer] OOS [employer] ACCESS OOS Advance Directives For more information, please contact: [phone] * Full Code (Latest Code Status on File) Date Activated Date Inactivated Comments 12/22/2021 8:51 AM 12/22/2021 2:41 PM * Full Code Date Activated Date Inactivated Comments 11/22/2020 2:57 PM 11/24/2020 2:17 PM Care Teams Pediatric Genetic Counselor Relationship Specialty Start Date End Date Yonatan Andrade MD [address] [place] [address] PCP - General Internal Medicine 06/03/19 Huy Mcpherson MD [address] [place] [address] Referring Physician Gastroenterology 10/13/20 Boy Bernard MD [address] [place] [address] Door Liner Helper Gastroenterology 10/19/20 Christo Enrique MD [address] [facility] [phone] [place] [address] Surgeon Colon and Rectal Surgery 10/19/20
--- OUTSIDE RECORDS SUMMARY | 2024-07-03 08:18 | XMS_ITS | Clinical Summary ---
Author Organization [facility] Address [address] [facility] [address] [place] [address] Phone Care Team Providers Care Cattle Killer Name Role Phone Yonatan Andrade MD Primary Care Provider Allergies No known active allergies Medications QUEtiapine [...] to complete this topic Insurance Care Teams Cattle Killer Relationship Specialty Start Date End Date Yonatan Andrade MD [address] [place] [address] PCP - General Internal Medicine 11/23/17
== END 2024-07-03 08:07 | disposition home or self-care (01) ==
PROVIDERS: PCP Physician Assistant Medical; Visit Provider Physician Assistant Medical
DX: N62 Hypertrophy of breast (principal); N63.21 Unspecified lump in the left breast, upper outer quadrant
CPT/HCPCS: 19083; 77065; 88305; A4648

== ENCOUNTER 2024-07-28 12:29 | Outpatient (CLI) | payer OTHER, SELFPAY ==
--- NOTE | ~2024-07-28 | MR_ITS ---
MR breast BI wo/w con 07/28/2024 16:07 CDT INDICATION: Left breast mass. Previous biopsy demonstrated gynecomastia. No evidence for malignancy. TECHNIQUE: MRI of the breasts perform using standard protocol pre-and post IV contrast with the follo wing sequences: Axial T2 STIR, axial T1, axial vibrant T1 with fat suppression precontrast and multip hasic postcontrast. COMPARISON: Mammogram and ultrasound dated 06/17/2019 FINDINGS: There is asymmetric gynecomastia, most prominent in the left breast. There are no abnormali ties on the precontrast sequences. There is mild background parenchymal enhancement. There is an enh ancing mass in the lower outer quadrant of the right breast measuring 1.3 cm with rapid washout kinet ics and central fatty hilum, consistent with intramammary lymph node. No areas of enhancement meeting threshold criteria on CAD analysis. No evidence of signal abnormalities in the axillary or internal mammary node distributions. LEFT BREAST: No signal abnormalities on precontrast sequences. There is mild background parenchymal enhancement. There are multiple intramammary lymph nodes of the left breast There is a small cyst in the left breast. No areas of enhancement meeting threshold criteria on CAD analysis. No evidence of signal abnormalities in the axillary or internal mammary node distributions.] IMPRESSION: 1: No evidence for malignancy in either breast. Benign asymmetric gynecomastia on the left side. Recommendation: Recommend follow-up clinical management for gynecomastia. BI-RADS CATEGORY 2 - BENIGN FINDINGS Reviewed, dictated and finalized at location A.
--- OUTSIDE RECORDS SUMMARY | 2024-07-28 13:36 | XMS_ITS | Encounter Summary ---
Author Organization [facility] Address [address] [place] [address] Care Team Providers Care Compliance Associate Name Role Phone Unavailable Primary Care Provider Bri neely Encounter Details Date Type Department Care Team (Late st Contact Info) Description 05/27/2021 Lab Requisition [facility] [address] [place] [id number] Osmany Camargo MD [address] [place] [address] Social History Tobacco Use Types [...] Comments DERMATOPATHOLOGY Routine 05/26/2021 12:0 0 AM SALESFORCE TRAINER documented in this encounter Results * DERMATOPATHOLOGY (05/26/2021 12:00 AM SALESFORCE TRAINER) Case Report Dermatopathology Report Case: [id number] Authorizing Provider: Osmany Camargo MD Collected: 05/26/2021 12:00 AM Ordering Location: [facility] Received: 05/27/2021 03:09 PM Pathologist: Ellie Solano MD Specimen: Skin, right cheek 2 10:37 AM SALESFORCE TRAINER DERMATOPATHOLOGY LABORATORY Final Diagnosis Specimen A. 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 Path#[id number] 2 10:37 AM [facility]ER[facility] Gross Description Specimen A: Received is one formalin filled container labeled with the patient's name and designated right cheek. The specimen consists of a shave biopsy measuring 7x6x1 mm. Jar 0. 2 10:37 AM [facility] DERMATOPATH[facility]Y [facility] Microscopic Description Specimen A. SKIN, right cheek: In the dermis there is a well-circumscribed collection of small as well as larger, thin- and thick-walled vessels. 2 10:37 AM [facility] DERMATOPATH[facility] Disclaimer An external and internal positive and negative controls are appropriate for the histochemical, immunohistochemical and immunofluorescence stain(s) in this case (if any), except where stated explicitly. The performance characteristics of the stain(s) cited in this report were developed and its performance characteristic determined by the Dermatopathology Laboratory at [facility], directed by Dr. Negar Elliott. These tests need not be, and therefore are not, approved by the [place] Food and Drug Administration. The tests are used for clinical purposes. Billing Codes Specimen Charges Stain Charges 81164 1 2 10:37 AM [facility] Embedded Images 2 10:37 AM [facility] Pathology/Cytolog y TISSUE SPECIMEN FROM SKIN / Unknown 05/26/2021 05/27/2021 3:09 PM SALESFORCE TRAINER Osmany Camargo MD LAB - PATHOLOGY/CYTO LOGY ORDERABLES DERMATOPATHOLOGY LABORATORY [facility] - Department of Dermatology [address], [address] Floor [address] [phone] documented in this encounter Visit Diagnoses Not on filedocumented in this encounter
--- OUTSIDE RECORDS SUMMARY | 2024-07-28 13:36 | XMS_ITS | Clinical Summary ---
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 Room: [facility] 02 Note Status: Finalized [...] The scope was passed under direct vision.The [id number] Endoscsope was introduced through the anus and [...] On: 12/22/2021 9:25 AM Recognized by the [place] Society for Gastrointestinal Endoscopy for promoting quality in endoscopy Christo Enrique MD ENDOSCOPY PROCEDURES Final R esult from Last 3 Months or Most Recently Relevant to Health Maintenance Insurance [facility] OOS [employer] ACCESS OOS [employer] ACCESS OOS Advance Directives For more information, please contact: [phone] * Full Code (Latest Code Status on File) Date Activated Date Inactivated Comments 12/22/2021 8:51 AM 12/22/2021 2:41 PM * Full Code Date Activated Date Inactivated Comments 11/22/2020 2:57 PM 11/24/2020 2:17 PM Care Teams Vegetable Farm Worker Relationship Specialty Start Date End Date Yonatan Andrade MD [address] [place] [address] PCP - General Internal Medicine 06/03/19 Huy Mcpherson MD [address] [place] [address] Referring Physician Gastroenterology 10/13/20 Boy Bernard MD [address] [facility] [address] [place] [address] Aircraft Technician Gastroenterology 10/19/20 Christo Enrique MD [address] [facility] [phone] [place] [address] Surgeon Colon and Rectal Surgery 10/19/20
--- OUTSIDE RECORDS SUMMARY | 2024-07-28 13:36 | XMS_ITS | Clinical Summary ---
Author Organization [facility] Address [address] [facility] [address] [place] [phone] Phone Care Team Providers Care Cordage Sales Representative Name Role Phone Yonatan Andrade MD Primary Care Provider [phone] Allergies No known active allergies Medications QUEtiapine [...] to complete this topic Insurance Care Teams Cordage Sales Representative Relationship Specialty Start Date End Date Yonatan Andrade MD [address] [place] [address] PCP - General Internal Medicine 11/23/17
--- OUTSIDE RECORDS SUMMARY | 2024-07-28 13:36 | XMS_ITS | Clinical Summary ---
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 [address] [address] [place] Manager Culinary CARDIOVASCULAR DISEASE 06/05/19
--- OUTSIDE RECORDS SUMMARY | 2024-07-28 13:36 | XMS_ITS | Clinical Summary ---
Author Organization [facility] Address [address] [facility] [place] [address] Care Team Providers Care Packaging Assembler Name Role Phone Unavailable Primary Care Provider Unavailabl e Source Comments [facility],non-owned Affiliates and Associated Physician Practices is amultiple site organization consisting of ambulatory clinics and hospital sitesin [place], [place], [place] and [place]. This disclosure is being madepursuant to the Care Everywhere program and may not contain all information available regarding this patient. Last updated 18.[facility] [employer] Social History Tobacco Use Types Packs/Day Years [...] to complete this topic MENINGOCOCCAL (Group B) VACC INE SHARED DECISION-MAKING Aged Out No longer eligibl e based on patient's age to complete this topic MENINGOCOCCAL GROUPS A/C/Y/W VACCINE Aged Out No longer eligible b ased on patient's age to complete this topic
--- OUTSIDE RECORDS SUMMARY | 2024-07-28 13:36 | XMS_ITS | Encounter Summary ---
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 PERFORMED BY NUCLEIC ACID AMPLIFICATION PCR FIRST TEST YES 09/28/2020 8:21 AM CDT [facility] EMPLOYED IN HEALTHCARE NO 09/28/2020 8:21 AM CDT [facility] SYMPTOMATIC DEFINED BY CDC NO 09/28/2020 8:21 AM CDT [facility] HOSPITALIZATION STATUS NO 09/28/2020 8:21 AM CDT [facility] PATIENT IN ICU NO 09/28/2020 8:21 AM CDT [facility] RESIDENT OF [facility] NO 09/28/2020 8:21 AM CDT [facility] NASOPHARYNGEAL SWAB / Unknown 09/28/2020 8:24 AM CDT [facility] Devan Bernard MD MICROBIOLOGY - GENERAL ORDERABLES Final Result [facility] [address] [place] [address], [place] [phone] [facility] [address] [place] [address], [place] [phone] documented in this encounter Visit Diagnoses Diagnosis Pre-op testing- Primary Preoperative examination, unspecified documented in this encounter Additional Health Concerns Infection Onset Date Last Indicated Resolved Time COVID-19 Rule Out 09/28/2020 09/28/2020 09/29/2020 1:12 PM CDT documented as of this encounter Care Teams Exchange Trouble Shooter Relationship Specialty Start Date End Date Yonatan Andrade MD [facility] [place] [address] PCP - General INTERNAL MEDICINE 05/23/19 Guillaume Portillo MD [facility]. [address] [address] [place] Dish Machine Operator CARDIOVASCULAR DISEASE 06/05/19 documented as of this encounter
--- OUTSIDE RECORDS SUMMARY | 2024-07-28 13:36 | XMS_ITS | Referral Summary ---
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 Room: [facility] ENDOSCOPY ROOM 02 Note Status: Finalized [...] The scope was passed under direct vision.The [id number] Endoscsope was introduced through the anus and [...] On: 12/22/2021 9:25 AM Recognized by the [place] Society for Gastrointestinal Endoscopy for promoting quality in endoscopy Christo Enrique MD ENDOSCOPY PROCEDURES Final R esult from Last 3 Months or Most Recently Relevant to Health Maintenance Insurance [employer] OOS [employer] OOS [employer] ACCESS OOS Advance Directives For more information, please contact: [phone] * Full Code (Latest Code Status on File) Date Activated Date Inactivated Comments 12/22/2021 8:51 AM 12/22/2021 2:41 PM * Full Code Date Activated Date Inactivated Comments 11/22/2020 2:57 PM 11/24/2020 2:17 PM Care Teams Operations Associate Relationship Specialty Start Date End Date Yonatan Andrade MD [address] [place] [address] PCP - General Internal Medicine 06/03/19 Huy Mcpherson MD [address] [place] [address] Referring Physician Gastroenterology 10/13/20 Boy Bernard MD [address] [place] [address] Band Edger Gastroenterology 10/19/20 Christo Enrique MD [address] [facility] [phone] [place] [address] Surgeon Colon and Rectal Surgery 10/19/20
--- OUTSIDE RECORDS SUMMARY | 2024-07-28 13:36 | XMS_ITS | Encounter Summary ---
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 on file Not [...] Final Result * VITAMIN B-12 (05/23/2019) Pathologist [facility] VITAMIN B12 S/P/B 530 200 - 1,100 05/23/2019 us [facility] Final Result * CBC (OUTSIDE LAB) (05/23/2019) Pathologist [facility] WBC 7.5 HGB 15.8 HCT 45.8 PLT 257 05/23/2019 us Doc [facility] LAB-OUTSIDE/ABSTRACTED Final Result * THYROID STIM HORMONE, TSH (05/23/2019) Pathologist [facility] TSH 1.15 0.40 - 4.50 05/23/2019 us Doc [facility] Final Result * CK (CPK) (05/23/2019) Pathologist [facility] CPK 96 05/23/2019 us Doc [facility] Final Result * MAGNESIUM (05/23/2019) Pathologist [facility] MAGNESIUM 2.1 1.5 - 2.5 05/23/2019 us [...] documented as of this encounter Care Teams Bag Valver Relationship Specialty Start Date End Date Yonatan Andrade MD [facility] [place] [address] PCP - General INTERNAL MEDICINE 05/23/19 Guillaume Portillo MD [facility]. [address] [address] [place] Accounts Receivable Assistant CARDIOVASCULAR DISEASE 06/05/19 documented as of this encounter
== END 2024-07-28 12:30 | disposition home or self-care (01) ==
PROVIDERS: PCP Physician Assistant Medical; Visit Provider Surgery
DX: N63.21 Unspecified lump in the left breast, upper outer quadrant (principal)
CPT/HCPCS: 77049; A9579; C8908

== ENCOUNTER 2024-08-11 08:02 | Outpatient (CLI) | payer OTHER, SELFPAY ==
--- OUTSIDE RECORDS SUMMARY | 2024-08-11 08:15 | XMS_ITS | Encounter Summary ---
Author Organization 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 PERFORMED BY NUCLEIC ACID AMPLIFICATION PCR FIRST TEST YES 09/28/2020 8:21 AM CDT [facility] EMPLOYED IN HEALTHCARE NO 09/28/2020 8:21 AM CDT [facility] SYMPTOMATIC DEFINED BY CDC NO 09/28/2020 8:21 AM CDT [facility] HOSPITALIZATION STATUS NO 09/28/2020 8:21 AM CDT [facility] PATIENT IN ICU NO 09/28/2020 8:21 AM CDT [facility] RESIDENT OF [facility] NO 09/28/2020 8:21 AM CDT [facility] NASOPHARYNGEAL SWAB / Unknown 09/28/2020 8:24 AM CDT [facility] Devan Bernard MD MICROBIOLOGY - GENERAL ORDERABLES Final Result [facility] [address] [place] [address], [place] [phone] [facility] [address] [place] [address], [place] [phone] documented in this encounter Visit Diagnoses Diagnosis Pre-op testing- Primary Preoperative examination, unspecified documented in this encounter Additional Health Concerns Infection Onset Date Last Indicated Resolved Time COVID-19 Rule Out 09/28/2020 09/28/2020 09/29/2020 1:12 PM CDT documented as of this encounter Care Teams Patient Financial Counselor Relationship Specialty Start Date End Date Yonatan Andrade MD [facility] [place] [address] PCP - General INTERNAL MEDICINE 05/23/19 Guillaume Portillo MD [facility]. [address] [address] [place] Data Technical Lead CARDIOVASCULAR DISEASE 06/05/19 documented as of this encounter
--- OUTSIDE RECORDS SUMMARY | 2024-08-11 08:15 | XMS_ITS | Clinical Summary ---
Author Organization 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 Not on file [...] 5 Years) and At-Risk Patients (6 to 49 Years) Aged Out No longer eligible b ased on patient's age to complete this topic RSV Immunizations Under 20 Months Aged Out No longer eligible b ased on patient's age to complete this topic Procedures Procedure Name Priority Date/Time Associated Diagnosis Comments COLONOSCOPY Routine 10/01/2020 9:29 AM CDT from Last 3 Months or Most Recently Relevant to Health Maintenance Insurance [facility] Care Teams User Support Analyst Supervisor Relationship Specialty Start Date End Date Yonatan Andrade MD [address] [place] [address] PCP - General INTERNAL MEDICINE 05/23/19 Guillaume Portilol MD [facility]. [address] [address] [place] Audit Manager CARDIOVASCULAR DISEASE 06/05/19
--- OUTSIDE RECORDS SUMMARY | 2024-08-11 08:15 | XMS_ITS | Clinical Summary ---
Author Organization [facility] Address [address] [facility] [place] [address] Care Team Providers Care Dealer Development Manager Name Role Phone Unavailable Primary Care Provider Unavailabl e Source Comments [facility],non-owned Affiliates and Associated Physician Practices is amultiple site organization consisting of ambulatory clinics and hospital sitesin [place], [place], [place] and [place]. This disclosure is being madepursuant to the Care Everywhere program and may not contain all information available regarding this patient. 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 Gender Identity Not on file Sexual Orientation [...] VACCINE (1 of 2) 2022 COVID-19 VACCINE (1 - 2023-2 5 season) 2023 DEPRESSION SCREENING 04/30/2024 INFLUENZA VACCINE (Season Ended) 2024 HIB VACCINE Aged Out No longer eligi [...] patient's age to complete this topic Insurance [facility] Address: [place] [address] SELF PAY NO INSURANCE Member Subscriber Plan / Payer (Ef fective for All Dates) Name:Chary Patton Member ID:Not on file Relation to Subscriber:Not on file Name:CHARY PATTON Subscriber ID:Not on file (Home) Address: [address] [place] [id number] Payer ID:Not on file Group ID:Not on file Type:Self Pay Address: [facility] Address: [facility] [address] [place] [address]
--- OUTSIDE RECORDS SUMMARY | 2024-08-11 08:15 | XMS_ITS | Encounter Summary ---
Author Organization [facility] Address [address] [facility] [place] [address] Care Team Providers Care Switcher Name Role Phone Unavailable Primary Care Provider Bri e Encounter Details Date Type Department Care Team (Late st Contact Info) Description 05/27/2021 Lab Requisition [facility] Derm[facility] [address] [place] [address] Osmany Camargo MD [address] [address] Social History Tobacco Use Types Packs/Day Years Used Date Smoking Tobacco: Never Assessed Sex and Gender Information Value Date Recorded Sex Assigned at Not on file 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 Gender Identity Not on file Sexual Orientation Not on file documented as of this encounter Plan of Treatment Not on file documented as of this encounter Procedures Procedure Name Priority Date/Time Associated Diagnosis Comments DERMATOPATHOLOGY Routine 05/26/2021 12:0 0 AM LEATHER DRIER documented in this encounter Results * DERMATOPATHOLOGY (05/26/2021 12:00 AM LEATHER DRIER) Case Report Dermatopathology Report Case: [id number] Authorizing Provider: Osmany Camargo MD Collected: 05/26/2021 12:00 AM Ordering Location: [facility] Received: 05/27/2021 03:09 PM Pathologist: Ellie Solano MD Specimen: Skin, right cheek 10:37 AM [facility]ATHER DRIER DERMATOPATHOLOGY LABORATORY Final Diagnosis Specimen A. 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 Path#[id number] 2 10:37 AM [facility] DERMATOPATHOLOGY LABORATORY Gross Description Specimen A: Received is one formalin filled container labeled with the patient's name and designated right cheek. The specimen consists of a shave biopsy measuring 7x6x1 mm. Jar 0. 2 10:37 AM [facility] DERMATOPATHOLOGY LABORATORY Microscopic Description Specimen A. SKIN, right cheek: In the dermis there is a well-circumscribed collection of small as well as larger, thin- and thick-walled vessels. 2 10:37 AM [facility] DERMATOPATHOLOGY LABORATORY Disclaimer An external and internal positive and negative controls are appropriate for the histochemical, immunohistochemical and immunofluorescence stain(s) in this case (if any), except where stated explicitly. The performance characteristics of the stain(s) cited in this report were developed and its performance characteristic determined by the Dermatopathology Laboratory at [facility], directed by Dr. Negar Elliott. These tests need not be, and therefore are not, approved by the [place] Food and Drug Administration. The tests are used for clinical purposes. Billing Codes Specimen Charges Stain Charges 84371 1 2 10:37 AM [facility] DERMATOPATHOLOGY LABORATORY Embedded Images 2 10:37 AM [facility] DERMATOPATHOLOGY LABORATORY Pathology/Cytolog y TISSUE SPECIMEN FROM SKIN / Unknown 05/26/2021 05/27/2021 3:09 PM LEATHER DRIER us Osmany Camargo MD LAB - PATHOLOGY/CYTOLOGY ORDER MARIE Final Result DERMATOPATHOLOGY LABORATORY [facility] - Department of Dermatology [address] [place] [address], [facility] [phone] documented in this encounter Visit Diagnoses Not on filedocumented in this encounter
--- OUTSIDE RECORDS SUMMARY | 2024-08-11 08:15 | XMS_ITS | Clinical Summary ---
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 Room: [facility] ENDOSCOPY ROOM 02 Note Status: Finalized Procedure: [...] The scope was passed under direct vision.The [id number] Endoscsope was introduced through the anus and [...] On: 12/22/2021 9:25 AM Recognized by the [employer] for promoting quality in endoscopy Christo Enrique MD ENDOSCOPY PROCEDURES Final R esult from Last 3 Months or Most Recently Relevant to Health Maintenance Insurance [facility] OOS [email or web address] ACCESS OOS [email or web address] ACCESS OOS Advance Directives For more information, please contact: [phone] * Full Code (Latest Code Status on File) Date Activated Date Inactivated Comments 12/22/2021 8:51 AM 12/22/2021 2:41 PM * Full Code Date Activated Date Inactivated Comments 11/22/2020 2:57 PM 11/24/2020 2:17 PM Care Teams Community Mental Health Social Worker Relationship Specialty Start Date End Date Yonatan Andrade MD [address] [place] [address] PCP - General Internal Medicine 06/03/19 Huy Mcpherson MD [address] [place] [address] Referring Physician Gastroenterology 10/13/20 Boy Bernard MD [address] [facility] [address] [place] [address] Vendor Management Consultant Gastroenterology 10/19/20 Christo Enrique MD [address] [facility] [phone] [place] [address] Surgeon Colon and Rectal Surgery 10/19/20
--- OUTSIDE RECORDS SUMMARY | 2024-08-11 08:15 | XMS_ITS | Referral Summary ---
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 Room: [facility] ENDOSCOPY ROOM 02 Note Status: Finalized [...] The scope was passed under direct vision.The [id number] Endoscsope was introduced through the anus and [...] On: 12/22/2021 9:25 AM Recognized by the [place] Gastrointestinal Endoscopy for promoting quality in endoscopy Christo Enrique MD ENDOSCOPY PROCEDURES Final R esult from Last 3 Months or Most Recently Relevant to Health Maintenance Insurance [employer]Eval OOS [place] OOS [employer] ACCESS OOS Advance Directives For more information, please contact: [phone] * Full Code (Latest Code Status on File) Date Activated Date Inactivated Comments 12/22/2021 8:51 AM 12/22/2021 2:41 PM * Full Code Date Activated Date Inactivated Comments 11/22/2020 2:57 PM 11/24/2020 2:17 PM Care Teams Railway Track Worker Relationship Specialty Start Date End Date Yonatan Andrade MD [address] [place] [address] PCP - General Internal Medicine 06/03/19 Huy Mcpherson MD [address] [place] [address] Referring Physician Gastroenterology 10/13/20 Boy Bernard MD [address] [place] [address] Christmas Bell Ringer Gastroenterology 10/19/20 Christo Enrique MD [address] [facility] [phone] [place] [address] Surgeon Colon and Rectal Surgery 10/19/20
--- OUTSIDE RECORDS SUMMARY | 2024-08-11 08:16 | XMS_ITS | Encounter Summary ---
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 on file Not [...] Final Result * VITAMIN B-12 (05/23/2019) Pathologist [facility] VITAMIN B12 S/P/B 530 200 - 1,100 05/23/2019 us Doc [facility] Final Result * CBC (OUTSIDE LAB) (05/23/2019) Pathologist [facility] WBC 7.5 HGB 15.8 HCT 45.8 PLT 257 05/23/2019 us Doc [facility] Abstract LAB-OUTSIDE/ABSTRACTED Final Result * THYROID STIM HORMONE, TSH (05/23/2019) Pathologist [facility] TSH 1.15 0.40 - 4.50 05/23/2019 us Doc [facility] LABORAT[facility] Final Result * CK (CPK) (05/23/2019) Pathologist [facility] CPK 96 05/23/2019 us Doc [facility] LABORAT[facility] Final Result * MAGNESIUM (05/23/2019) Pathologist [facility] MAGNESIUM 2.1 1.5 - 2.5 [...] documented as of this encounter Care Teams Pododermatologist Relationship Specialty Start Date End Date Yonatan Andrade MD [facility] [place] [address] PCP - General INTERNAL MEDICINE 05/23/19 Guillaume Portillo MD [facility]. [address] [address] [place] Operational Review Sergeant CARDIOVASCULAR DISEASE 06/05/19 documented as of this encounter
--- NOTE | 2024-08-11 08:30 | ECG_ITS ---
Test Date: 2024-08-11 08:18:02 Measurements Intervals Keller Rate: 89 P: 56 HI: 160 QRS: 45 QRSD: 106 T: 45 QT: 379 QTc: 462 Interpretive Statements SINUS RHYTHM BASELINE ARTIFACT- I, II, III, AVR, AVL, AVF NORMAL ECG No previous ECG available for comparison Electronically Signed On 08-11-2024 08:27:01 CDT by Souleymane Pa D.O.
== END 2024-08-11 08:03 | disposition home or self-care (01) ==
LOC: ANHSURGERY 08:07
PROVIDERS: PCP Physician Assistant Medical; Visit Provider Surgery
DX: I10 Essential (primary) hypertension (principal); Z87.898 Personal history of other specified conditions
CPT/HCPCS: 36415; 86850; 86900; 86901; 93005

== ENCOUNTER 2024-09-10 00:06 | Day surgery (SDC) | payer OTHER, SELFPAY ==
[2024-09-01 08:49] VITALS: BMI 28.9
--- NOTE | 2024-09-01 08:50 | PC.NURSE ---
Report to the Outpatient Waiting Room, entrance under the green pavilion located off [facility], at time _0600_ on date _[id number]_. Planned Procedure Time: _0730_. Time changes happen often and if your time is changed the preop area will call you the afternoon before. - You and your visitor will be asked to self-screen and do not enter if you have any COVID symptoms. Please call surgeon if you need to reschedule. - A mask is optional within the hospital at this time. Patients may have clear liquids (water, carbonated beverages, clear teas, apple juice) until 3 hours prior to surgery with a maximum of 20 ounces. - No food from midnight until time of surgery and no smoking, or chewing tobacco (or any form of nicotine). No chewing gum, candy or mints. Take only the following medications with a SIP of water on the morning of surgery: __Bupropion___ DO NOT STOP ANY OF YOUR OTHER PRESCRIPTION MEDICATIONS PRIOR TO SURGERY EXCEPT THE FOLLOWING Hold all vitamins and supplements for 3 days per anesthesiologist. Medications to discontinue per physician Date to take last qplo___[id number]___ Please no make-up, nail niuean, hairspray, perfume, deodorant, or body powder the day of surgery. No jewelry (including any body piercings) or valuables the day of surgery, leave them at home. Please take a shower or bath the night before, or the morning of, surgery with an antibacterial soap. Wear comfortable, loose fitting clothing. - Jewelry must be removed prior to entering the operating room. Rings and piercings that are not removed may be cut off. - The hospital will not accept responsibility for valuables. - Please leave all valuables, including medications, at home the day of surgery. If you are going home after surgery, a licensed refrigerated company driver must drive you home. - NO public transportation without another adult if you receive anesthesia. - We recommend that an adult stay with you for 24 hours following discharge. - We also recommend that you do not drive, make important decision, drink alcoholic beverages, or take any drugs that were not prescribed by your health care provider for at least 24 hours after your discharge time. Follow any additional instructions given to you from your surgeon. Telephone instructions given to _Doug__and asked if any additional questions and then verbalized understanding. Patient advised to call surgeon office or pre surgery nurse liaison [phone] if any additional questions.
[2024-09-10] VITALS (7 sets, daily range): BP systolic 113–156; BP diastolic 71–97; PULSE 67–75; RESP 14–18; TEMP 36.1–36.4; O2SAT 99–100
--- OUTSIDE RECORDS SUMMARY | 2024-09-10 00:10 | XMS_ITS | Clinical Summary ---
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 [address] [place] [address] [place] Isolation Washer CARDIOVASCULAR DISEASE 06/05/19
--- OUTSIDE RECORDS SUMMARY | 2024-09-10 00:10 | XMS_ITS | Encounter Summary ---
Author Organization [facility] Address [address] [place] [address] Care Team Providers Care Customer Care Associate Name Role Phone Unavailable Primary Care Provider Bri e Encounter Details Date Type Department Care Team (Late st Contact Info) Description 05/27/2021 Lab Requisition [facility] DermPath Lab [address] [place] [address] Osmany Camargo MD [address] [place] [address] Social History Tobacco Use Types Packs/Day Years Used Date Smoking Tobacco: Never Assessed Sex and Gender Information Value Date Recorded Sex Assigned at Not on file Legal Sex Male 3:[address] REPORTER Gender Identity Not on file Sexual Orientation Not on file documented as of this encounter Plan of Treatment Not on file documented as of this encounter Procedures Procedure Name Priority Date/Time Associated Diagnosis Comments DERMATOPATHOLOGY Routine 05/26/2021 12:[address] REPORTER documented in this encounter Results * DERMATOPATHOLOGY (05/26/2021 12:[address] REPORTER) Case Report Dermatopathology Report Case: [id number] Authorizing Provider: Osmany Camargo MD Collected: 05/26/2021 12:00 AM Ordering Location: [facility] DermPath Lab Received: 05/27/2021 03:09 PM Pathologist: Ellie Solano MD Specimen: Skin, right cheek 10:[address] REPORTER DERMATOPATHOLOGY LABORATORY Final Diagnosis Specimen A. SKIN, right cheek: ARTERIOVENOUS HEMANGIOMA (D18.01) 2 10:[address] REPORTER DERMATOPATHOLOGY LABORATORY Clinical History Hemangioma vs PG vs other. Path#[id number] 2 10:37 AM [facility] DERMATOPATHOLOGY LABORATORY Gross Description Specimen A: Received is one formalin filled container labeled with the patient's name and designated right cheek. The specimen consists of a shave biopsy measuring 7x6x1 mm. Jar 0. 2 10:37 AM [facility] DERMATOPATHOLOGY LABORATORY Microscopic Description Specimen A. SKIN, right cheek: In the dermis there is a well-circumscribed collection of small as well as larger, thin- and thick-walled vessels. 2 10:37 AM [facility] DERMATOPATHOLOGY LABORATORY Disclaimer An external and internal positive and negative controls are appropriate for the histochemical, immunohistochemical and immunofluorescence stain(s) in this case (if any), except where stated explicitly. The performance characteristics of the stain(s) cited in this report were developed and its performance characteristic determined by the Dermatopathology Laboratory at [facility], directed by Dr. Negar Elliott. These tests need not be, and therefore are not, approved by the [place] Food and Drug Administration. The tests are used for clinical purposes. Billing Codes Specimen Charges Stain Charges 48825 1 2 10:37 AM [facility] DERMATOPATHOLOGY LABORATORY Embedded Images 2 10:37 AM [facility] DERMATOPATHOLOGY LABORATORY Pathology/Cytolog y TISSUE SPECIMEN FROM SKIN / Unknown 05/26/2021 05/27/2021 3:[address] REPORTER us Osmany Camargo MD LAB - PATHOLOGY/CYTOLOGY ORDER MARIE Final Result DERMATOPATHOLOGY LABORATORY [facility] - Department of Dermatology [address] [place] [address], [facility] [phone] documented in this encounter Visit Diagnoses Not on filedocumented in this encounter
--- OUTSIDE RECORDS SUMMARY | 2024-09-10 00:10 | XMS_ITS | Clinical Summary ---
Author Organization [facility] Address [address] [facility] [address] [place] [phone] Phone Care Team Providers Care Oven Roaster Name Role Phone Yonatan Andrade MD Primary Care Provider [phone] Allergies No known active allergies Medications QUEtiapine [...] to complete this topic Insurance Care Teams Oven Roaster Relationship Specialty Start Date End Date Yonatan Andrade MD [address] [place] [address] PCP - General Internal Medicine 11/23/17
--- OUTSIDE RECORDS SUMMARY | 2024-09-10 00:10 | XMS_ITS | Referral Summary ---
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 Room: [facility] ENDOSCOPY ROOM 02 Note Status: Finalized [...] The scope was passed under direct vision.The [id number] Endoscsope was introduced through the anus and [...] On: 12/22/2021 9:25 AM Recognized by the Citizen Of The [place] Society for Gastrointestinal Endoscopy for promoting quality in endoscopy Christo Enrique MD ENDOSCOPY PROCEDURES Final R esult from Last 3 Months or Most Recently Relevant to Health Maintenance Insurance Tagstr OOS [employer] OOS QSecure ACCESS OOS Advance Directives For more information, please contact: [phone] * Full Code (Latest Code Status on File) Date Activated Date Inactivated Comments 12/22/2021 8:51 AM 12/22/2021 2:41 PM * Full Code Date Activated Date Inactivated Comments 11/22/2020 2:57 PM 11/24/2020 2:17 PM Care Teams Warehouse Shipper Relationship Specialty Start Date End Date Yonatan Andrade MD [address] [place] [address] PCP - General Internal Medicine 06/03/19 Huy Mcpherson MD [address] [place] [address] Referring Physician Gastroenterology 10/13/20 Boy Bernard MD [address] [place] [address] Administrative Support Manager Gastroenterology 10/19/20 Christo Enrique MD [phone] [place] [address] Surgeon Colon and Rectal Surgery 10/19/20
--- OUTSIDE RECORDS SUMMARY | 2024-09-10 00:10 | XMS_ITS | Clinical Summary ---
Author Organization [facility] Address [address] [facility] [place] [address] Care Team Providers Care Phone Technician Name Role Phone Unavailable Primary Care Provider Unavailabl e Source Comments [facility],non-owned Affiliates and Associated Physician Practices is amultiple site organization consisting of ambulatory clinics and hospital sitesin [place], [place], [place] and [place]. This disclosure is being madepursuant to the Care Everywhere program and may not contain all information available regarding this patient. 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
--- OUTSIDE RECORDS SUMMARY | 2024-09-10 00:11 | XMS_ITS | Clinical Summary ---
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 Gender Identity Not on file Sexual Orientation [...] The scope was passed under direct vision.The [id number] Endoscsope was introduced through the anus and [...] On: 12/22/2021 9:25 AM Recognized by the [place] Society for Gastrointestinal Endoscopy for promoting quality in endoscopy Christo Enrique MD ENDOSCOPY PROCEDURES Final R esult from Last 3 Months or Most Recently Relevant to Health Maintenance Insurance [facility] OOS [employer] Electronic ACCESS OOS [place] [place] Electronic ACCESS OOS Advance Directives For more information, please contact: [phone] * Full Code (Latest Code Status on File) Date Activated Date Inactivated Comments 12/22/2021 8:51 AM 12/22/2021 2:41 PM * Full Code Date Activated Date Inactivated Comments 11/22/2020 2:57 PM 11/24/2020 2:17 PM Care Teams Gun Sealing Machine Operator Relationship Specialty Start Date End Date Yonatan Andrade MD [address] [place] [address] PCP - General Internal Medicine 06/03/19 Huy Mcpherson MD [address] [place] [address] Referring Physician Gastroenterology 10/13/20 Boy Bernard MD [address] [facility] [address] [place] [address] Central Control Room Operator Gastroenterology 10/19/20 Christo Enrique MD [address] [facility] [phone] [place] [address] Surgeon Colon and Rectal Surgery 10/19/20
--- OUTSIDE RECORDS SUMMARY | 2024-09-10 00:11 | XMS_ITS | Encounter Summary ---
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 Not on file Not on [...] * VITAMIN B-12 (05/23/2019) Pathologist [facility] VITAMIN B12 S/P/B 530 200 - 1,100 05/23/2019 us Doc [facility] Abstract LABORATORY Final Result * CBC (OUTSIDE LAB) (05/23/2019) Pathologist [facility] WBC 7.5 HGB 15.8 HCT 45.8 PLT 257 05/23/2019 us Doc [facility] Abstract LAB-OUTSIDE/ABSTRACTED Final Result * THYROID STIM HORMONE, TSH (05/23/2019) Pathologist [facility] TSH 1.15 0.40 - 4.50 05/23/2019 us Doc [facility] LABORATORY Final Result * CK (CPK) (05/23/2019) Pathologist [facility] CPK 96 05/23/2019 us Doc [facility] LABORATORY Final Result * MAGNESIUM (05/23/2019) Pathologist [facility] MAGNESIUM 2.1 1.5 - 2.5 05/23/2019 [...] documented as of this encounter Care Teams Bale Stacker Relationship Specialty Start Date End Date Yonatan Andrade MD [facility] [place] [address] PCP - General INTERNAL MEDICINE 05/23/19 Guillaume Portillo MD [facility]. [address] [address] [place] Professor Of Theatre CARDIOVASCULAR DISEASE 06/05/19 documented as of this encounter
--- OUTSIDE RECORDS SUMMARY | 2024-09-10 00:11 | XMS_ITS | Encounter Summary ---
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 PERFORMED BY NUCLEIC ACID AMPLIFICATION PCR FIRST TEST YES 09/28/2020 8:21 AM CDT [facility] EMPLOYED IN HEALTHCARE NO 09/28/2020 8:21 AM CDT [facility] SYMPTOMATIC DEFINED BY CDC NO 09/28/2020 8:21 AM CDT [facility] HOSPITALIZATION STATUS NO 09/28/2020 8:21 AM CDT [facility] PATIENT IN ICU NO 09/28/2020 8:21 AM CDT [facility] RESIDENT OF [facility] NO 09/28/2020 8:21 AM CDT [facility] NASOPHARYNGEAL SWAB / Unknown 09/28/2020 8:24 AM CDT [facility] Devan Bernard MD MICROBIOLOGY - GENERAL ORDERABLES Final Result [facility] [address] [place] [address], [place] [phone] [facility] [address] [place] [address], [place] [phone] documented in this encounter Visit Diagnoses Diagnosis Pre-op testing- Primary Preoperative examination, unspecified documented in this encounter Additional Health Concerns Infection Onset Date Last Indicated Resolved Time COVID-19 Rule Out 09/28/2020 09/28/2020 09/29/2020 1:12 PM CDT documented as of this encounter Care Teams Farm Management Adviser Relationship Specialty Start Date End Date Yonatan Andrade MD [facility] [place] [address] PCP - General INTERNAL MEDICINE 05/23/19 Guillaume Portillo MD [facility]. [address] [address] [facility] Receiving Clerk CARDIOVASCULAR DISEASE 06/05/19 documented as of this encounter
--- NOTE | 2024-09-10 06:42 | P.PNAN_ITS ---
Anes - Initial Pre Proc Eval Procedure: Operation Date: 09/10/24 07:30 Proposed Procedures p Excisional Biopsy Left Breast Mass - Neeru Owens MD Date/Time: 09/10/24 06:42 Surgeon: Neeru Owens MD Pre Op Diagnosis: unspec lump left breast Patient Data Age: 54 Gender: M Height: 1.88 m Weight: 102.3 kg Allergies Allergy/AdvReac Type Severity Reaction Status Date / Time No Known Allergies Allergy Verified 09/01/24 08:41 Home Medications Medication Instructions Recorded Confirmed Type rosuvastatin 20 mg tablet 20 mg PO DAILY #90 tabs 03/24/24 08/06/24 Rx alprazolam 0.25 mg tablet 0.25 mg PO TID PRN anxiety #45 tabs 05/29/24 09/01/24 Rx sildenafil 100 mg tablet 100 mg PO DAILY PRN sexual 05/30/24 09/01/24 Rx activity #60 tabs bupropion HCl 150 mg 24 hr tablet, 150 mg PO QAM #90 tabs 06/02/24 09/01/24 Rx extended release lisinopril 10 mg tablet 10 mg PO DAILY #90 tabs 06/27/24 09/01/24 Rx cyclobenzaprine 5 mg tablet See Rx Instructions PO QHS PRN 07/21/24 09/01/24 Rx muscle spasm #20 tabs cariprazine 4.5 mg capsule 4.5 mg PO DAILY #30 caps 08/04/24 09/01/24 Rx (Vraylar) lamotrigine 150 mg tablet 300 mg PO HS 08/06/24 09/01/24 History minocycline 100 mg capsule 100 mg PO DAILY 08/07/24 09/01/24 History cyanocobalamin (vitamin B-12) 1,000 mcg PO DAILY 08/14/24 09/01/24 History 1,000 mcg tablet Patient hx anesthesia problems: none Family hx anesthesia problems: none Results Review: All pre-operative results and documents have been reviewed as part of the pre- operative evaluation. [facility] Past Medical History Medical History Prostatic adenocarcinoma BPH (benign prostatic hyperplasia) Complex partial seizures Bipolar 2 disorder IFG (impaired fasting glucose) Hypercholesteremia HTN (hypertension) Anxiety Surgical History Surgical History H/O kyphoplasty History of partial colectomy Family History Family History Mother Hypertension Father Family history of elevated blood lipids Family history of heart disease in male family member before age 55 Sibling Family history of kidney disease Other Family history of cardiovascular disease Social History Social History Smoking status: Never smoker Alcohol intake: current Drinks per week: 18 Substance use: never Substance use type: does not use Do You Feel Safe in your Home?: Yes Lack of Transportation: No Lack of Food: Never True Current Housing: I Have Housing Concerned About Future Housing: Decline to Answer Difficulty Paying Gas/Electric Bills: Decline to Answer Difficulty Paying for Meds: Decline to Answer Currently Unemployed: Decline to Answer Education: Decline to Answer Difficulty w/ Childcare or Family Care: Decline to Answer Living arrangements: with family Occupation/Education: occupation Gender identity (if verbalized by the patient): Male Spiritual care concerns: No Anes - Eval Final PreProcedure Day of Procedure 09/10/24 06:42 Patient weight: overweight Heart: regular rate and rhythm Lungs: clear to auscultation Airway: Mallampati scale class II Neurological: alert and oriented Last oral intake: >/= 8 hours ASA classification: III Emergent: no Anesthetic plan: proceed Anesthesia type and monitoring: general LMA and standard monitoring Results Review: All pre-operative results and documents have been reviewed as part of the pre- operative evaluation. Informed Consent: The patient's anesthetic plan and its attendant risks and benefits were discussed with the patient/family/POA. Questions were solicited and answers provided to the satisfaction of the patient/family/POA.
--- NOTE | 2024-09-10 06:52 | WPDHPUPDATE1 ---
History and Physical Update Update Date/Time: 09/10/24 06:52 - Excisional biopsy of left breast mass. History and Physical has been reviewed, including an updated exam of the patient. There are NO changes in the patient's condition. Risks, benefits, and alternatives have been discussed and questions answered. Patient agrees to proceed with procedure.
[2024-09-10] MEDS: LACTATED RINGERS 1,000 ML 30 ML IV CONT (07:00)
[2024-09-10] MEDS: ceFAZolin 2 GM/D5W 50 ML 2 GM/50 ML BAG IVPB (07:24)
[2024-09-10] MEDS: BUPIVACAINE/EPINEPHRINE 0.5% 30 ML VIAL 20 ML INFILTRATE (07:59)
[2024-09-10] MEDS: LIDOCAINE 1% LOCAL INJ 20 ML VIAL INFILTRATE (08:01)
--- NOTE | 2024-09-10 08:29 | SUR.OPER ---
Breast specimen sent with LACEY Welch and received in pathology by
--- NOTE | 2024-09-10 08:53 | W.PM.PROC2 ---
Procedure Note - Detailed Date of Procedure 09/10/24 Pre-op Diagnosis Painful palpable left breast mass Post-op Diagnosis Same Procedure Performed Excisional biopsy of left breast mass Surgeon Neeru Owens MD Anesthesia MAC Description of Procedure Patient was identified in the preoperative holding area brought to the operating room suite. He was laid supine in the OR table sequential compression devices were applied. General anesthesia was induced without difficulty. The left chest area was prepped and draped in a sterile fashion. Patient had a previous inferior periareolar scar, and decision was made to use the same scar for access to the subareolar area. An inferior periareolar incision was made and dissection was carried down through the subcutaneous tissue into the breast tissue. The subareolar area was carefully dissected with a 15 blade care was taken to ensure that the nipple blood supply was not compromised. Dissection was then extended cephalad to the edge of the palpable mass was well as inferior lateral and medial. The mass was then excised EN bloc and sent to pathology as a fresh specimen. The cavity was irrigated with saline hemostasis was assured. Two intraparenchymal 2 0 Vicryl sutures were used to approximate the deep breast tissue to prevent nipple retraction. The deep dermal layer was then closed with interrupted 3-0 Vicryl followed by 4-0 Monocryl in a subcuticular fashion for the skin. Dermabond was applied followed by fluffs and Dave wrap. Patient was awoken from anesthesia taken to the recovery in stable condition. All needles, instruments, sponge counts were correct as reported by the operating room staff. Patient tolerated the procedure well with no immediate complications. Estimated Blood Loss 5 Drains No Pathology Yes Complications No immediate complications Condition Stable Disposition PACU [facility] Billing Surgery - Charge Forward: Surgery Billing (CPT 06050)
== END 2024-09-10 10:00 | disposition home or self-care (01) ==
PROVIDERS: PCP Physician Assistant Medical; Visit Provider Surgery
PROC: (CPT 19120; principal; 2024-09-10 07:30)
DX: N62 Hypertrophy of breast (principal); I10 Essential (primary) hypertension; F41.9 Anxiety disorder, unspecified; E78.00 Pure hypercholesterolemia, unspecified; N40.0 Benign prostatic hyperplasia without lower urinary tract symptoms; F31.81 Bipolar II disorder; R73.01 Impaired fasting glucose; G40.209 Localization-related (focal) (partial) symptomatic epilepsy and epileptic syndromes with complex partial seizures, not intractable, without status epilepticus; Z98.890 Other specified postprocedural states; Z90.49 Acquired absence of other specified parts of digestive tract; Z85.46 Personal history of malignant neoplasm of prostate; Z82.49 Family history of ischemic heart disease and other diseases of the circulatory system
CPT/HCPCS: 19120; 88307; J0690; J1200; J2003; J2004; J2250; J2405; J2704; J3010; J7120; Q9968